=== PATIENT | female | born 1930 | race Caucasian/White ===

== ENCOUNTER 2016-09-13 06:00 | Inpatient (IN) | payer OTHER ==
[~2016-09-13] VITALS: Ht 147.3 cm; Wt 52.6 kg
[2016-09-13] VITALS (11 sets, daily range): BP systolic 95–123; BP diastolic 42–105
[2016-09-13 06:28] LABS: EOSINOPHIL (%) 0.8 % (0-5); EOSINOPHIL COUNT 0.1 K/uL (0-0.3); HEMATOCRIT 39.8 % (36.0-46.0); IMMATURE GRANULOCYTE (%) 0.2 % (0.0-0.7); IMMATURE GRANULOCYTE COUNT 0.1 K/uL; LYMPHOCYTE COUNT 1.9 K/uL (1.0-2.8); MCH 28.4 PG (29.0-34.0); MCHC 32.9 G/DL (30.0-36.0); MCV 86.1 FL (83-99); MEAN PLAT.VOLUME 9.8 uM^3 (9.5-12.4); MONOCYTE (%) 9.8 % (3-12); MONOCYTE COUNT 0.6 K/uL (0-0.8); NEUTROPHIL (%) 58.1 % (45-76); NEUTROPHIL COUNT 3.6 K/uL (1.8-6.4); PLATELET COUNT 203 K/uL (156-360); RBC DIS.WIDTH-CV 12.9 % (11.8-14.6); RBC DIS.WIDTH-SD 39.9 % (39-53); RED BLOOD COUNT 4.62 M/uL (3.80-5.20); WHITE BLOOD COUNT 6.1 K/uL (4.1-10.2)
[2016-09-13 06:37] LABS: INTER. NORMALIZED RATIO 1.1; PROTHROMBIN TIME 11.4 (9.2-11.2); PTT 27.5 (25-32)
[2016-09-13 06:38] LABS: CHLORIDE 109 mEq/L (99-109); POTASSIUM 4.2 mEq/L (3.7-5.4); SODIUM 141 mEq/L (136-147)
[2016-09-13 06:39] LABS: GLUCOSE 106 mg/dL (70-99)
[2016-09-13 06:41] LABS: ANION GAP 8 MEQ/L (2-14)
[2016-09-13 06:43] LABS: GFR ESTIMATE (CALCULATED) > 59 mL/min/
[2016-09-13 06:44] LABS: UREA NITROGEN (BUN) 21 mg/dL (9-23)
[2016-09-13 06:47] LABS: TROP-I INTERPRETATION NEGATIVE; TROPONIN-I 0.03 ng/mL (0.0-0.30)
[2016-09-13] MEDS ORDERED: XARELTO15 MG PO (07:14)
[2016-09-13] MEDS ORDERED: TOPROL XL25 MG PO (07:57)
[2016-09-13] MEDS ORDERED: B-121000 MC2 PO (08:37)
[2016-09-13] MEDS ORDERED: OCUVITE TABLET1 EACH PO (08:37)
[2016-09-13] MEDS ORDERED: FISH OIL 1,0001 EAC7 PO (08:37)
[2016-09-13 11:13] LABS: METH RESISTANT S AUREUS PCR NEGATIVE (NEGATIVE); PROBE CHECK PASS; SPECIMEN PROCESSING CONTROL PASS
[2016-09-14] VITALS (7 sets, daily range): BP systolic 125–139; BP diastolic 55–97
[2016-09-14 05:54] LABS: MCH 27.9 PG (29.0-34.0); MCHC 32.1 G/DL (30.0-36.0); MCV 86.8 FL (83-99); MEAN PLAT.VOLUME 10.4 uM^3 (9.5-12.4); NRBC (%) 1.1 /100 WBC (0-0); PLATELET COUNT 205 K/uL (156-360); RBC DIS.WIDTH-CV 13.5 % (11.8-14.6); RBC DIS.WIDTH-SD 42.9 % (39-53); RED BLOOD COUNT 4.38 M/uL (3.80-5.20)
[2016-09-14 06:35] LABS: ANION GAP 6 MEQ/L (2-14); CHLORIDE 110 MEQ/L (99-109); GFR ESTIMATE (CALCULATED) > 59 mL/min/; GLUCOSE 87 mg/dL (70-99); MAGNESIUM 1.8 mg/dl (1.3-2.7); POTASSIUM 4.2 MEQ/L (3.7-5.4); SAMPLE HEMOLYSIS CHECK 0; SAMPLE ICTERIC CHECK 0; SAMPLE LIPEMIA CHECK 0; SODIUM 143 MEQ/L (136-147); UREA NITROGEN (BUN) 11 mg/dL (9-23)
[2016-09-14 07:29] LABS: ABS NEUTROPHIL COUNT 4.35; MACROCYTES OCC; OVALOCYTES RARE; PLAT.SUFFICIENCY ADEQUATE
[2016-09-14 13:20] LABS: DELETE MACHINE DIFF? YES
[2016-09-15 00:12] VITALS: BP 133/81
[2016-09-15 04:01] VITALS: BP 116/69
[2016-09-15 06:46] LABS: EOSINOPHIL (%) 0.3 % (0-5); HEMATOCRIT 41.7 % (36.0-46.0); IMMATURE GRANULOCYTE (%) 0.2 % (0.0-0.7); LYMPHOCYTE COUNT 1.7 K/uL (1.0-2.8); MCH 27.8 PG (29.0-34.0); MCHC 32.4 G/DL (30.0-36.0); MEAN PLAT.VOLUME 10.3 uM^3 (9.5-12.4); MONOCYTE (%) 9.4 % (3-12); NEUTROPHIL (%) 73.5 % (45-76); NEUTROPHIL COUNT 7.8 K/uL (1.8-6.4); PLATELET COUNT 193 K/uL (156-360); RBC DIS.WIDTH-CV 13.1 % (11.8-14.6); RED BLOOD COUNT 4.85 M/uL (3.80-5.20)
[2016-09-15 06:47] LABS: WHITE BLOOD COUNT 10.6 K/uL (4.1-10.2)
[2016-09-15 08:21] LABS: ALKALINE PHOSPHATASE 65 IU/L (3-129); ANION GAP 11 MEQ/L (2-14); CHLORIDE 104 MEQ/L (99-109); GFR ESTIMATE (CALCULATED) > 59 mL/min/; GLUCOSE 73 mg/dL (70-99); MAGNESIUM 1.7 mg/dl (1.3-2.7); SAMPLE HEMOLYSIS CHECK 0; SAMPLE ICTERIC CHECK 0; SAMPLE LIPEMIA CHECK 0; SODIUM 138 MEQ/L (136-147); TOTAL BILIRUBIN 1.2 MG/DL (0.0-1.0); UREA NITROGEN (BUN) 11 mg/dL (9-23)
[2016-09-15 09:13] VITALS: BP 112/59
[2016-09-15 11:47] VITALS: BP 100/52
== END 2016-09-15 14:00 | disposition home or self-care (01) | DRG 244 ==
LOC: EME → EDBD 06:00 → EME 06:00 → 4WEST 08:28 → EDOF 08:28 → 4EAST 08:28 → EDOF 08:48 → 4WEST 09:46 → 4EAST 09-14 19:51
PROVIDERS: Emergency Medicine; Hospitalist; Internal Medicine Nephrology
DX: I49.5 Sick sinus syndrome (principal); I48.0 Paroxysmal atrial fibrillation; Z92.3 Personal history of irradiation; Z90.10 Acquired absence of unspecified breast and nipple; R93.8 Abnormal findings on diagnostic imaging of other specified body structures; I10 Essential (primary) hypertension
CPT/HCPCS: 71010; 71250; 80048; 80053; 81003; 83735; 84100; 84443; 84484; 85025; 85610; 85730; 87641; 93005; 99281; 99285; C1785; C1892; C1894; C1898; J0690; J1200; J2250; J3010; J7030; S0020

== ENCOUNTER 2016-09-16 08:22 | Observation (INO) | payer OTHER ==
[~2016-09-16] VITALS: Ht 147.3 cm; Wt 50.0 kg
[~2016-09-16 08:22] MED LIST: B-121000 MC2 PO; FISH OIL 1,0001 EAC7 PO; OCUVITE TABLET1 EACH PO; TOPROL XL25 MG PO; XARELTO15 MG PO
[2016-09-16 09:23] LABS: EOSINOPHIL (%) 0.6 % (0-5); EOSINOPHIL COUNT 0.1 K/uL (0-0.3); HEMATOCRIT 34.6 % (36.0-46.0); IMMATURE GRANULOCYTE (%) 0.2 % (0.0-0.7); IMMATURE GRANULOCYTE COUNT 0.2 K/uL; LYMPHOCYTE COUNT 1.6 K/uL (1.0-2.8); MCH 28.6 PG (29.0-34.0); MCHC 33.8 G/DL (30.0-36.0); MCV 84.6 FL (83-99); MONOCYTE (%) 8.9 % (3-12); MONOCYTE COUNT 0.8 K/uL (0-0.8); NEUTROPHIL (%) 72.4 % (45-76); NEUTROPHIL COUNT 6.5 K/uL (1.8-6.4); PLATELET COUNT 165 K/uL (156-360); RBC DIS.WIDTH-SD 39.4 % (39-53); RED BLOOD COUNT 4.09 M/uL (3.80-5.20)
[2016-09-16 09:32] LABS: CHLORIDE 109 mEq/L (99-109); POTASSIUM 3.9 mEq/L (3.7-5.4); SODIUM 142 mEq/L (136-147)
[2016-09-16 09:33] LABS: MAGNESIUM 1.7 mg/dL (1.3-2.7)
[2016-09-16 09:36] LABS: ANION GAP 8 MEQ/L (2-14)
[2016-09-16 09:38] LABS: GFR ESTIMATE (CALCULATED) > 59 mL/min/
[2016-09-16 09:39] LABS: UREA NITROGEN (BUN) 17 mg/dL (9-23)
[2016-09-16 09:40] LABS: INTER. NORMALIZED RATIO 1.2; PROTHROMBIN TIME 12.1 (9.2-11.2); PTT 27.8 (25-32)
[2016-09-16 09:46] LABS: GLUCOSE 102 mg/dL (70-99); TROP-I INTERPRETATION NEGATIVE; TROPONIN-I 0.02 ng/mL (0.0-0.30)
[2016-09-16 13:59] VITALS: BP 137/66
[2016-09-16 19:00] VITALS: BP 111/55
[2016-09-17] VITALS: BP 111/55
[2016-09-17 04:00] VITALS: BP 110/76
[2016-09-17 06:04] LABS: HEMATOCRIT 34.7 % (36.0-46.0); MCH 28.6 PG (29.0-34.0); MCHC 32.9 G/DL (30.0-36.0); MEAN PLAT.VOLUME 10.7 uM^3 (9.5-12.4); PLATELET COUNT 161 K/uL (156-360); RBC DIS.WIDTH-CV 13.2 % (11.8-14.6); RBC DIS.WIDTH-SD 42.1 % (39-53); RED BLOOD COUNT 3.99 M/uL (3.80-5.20); WHITE BLOOD COUNT 7.7 K/uL (4.1-10.2)
[2016-09-17 07:51] VITALS: BP 110/57
[2016-09-17] MEDS ORDERED: METOPROLOL SUCC50 MG PO (11:36)
[2016-09-17 11:45] VITALS: BP 118/58
== END 2016-09-17 13:03 | disposition home or self-care (01) ==
LOC: EME 08:22 → 5WEST 11:17 → EDOF 11:17 → 5WEST 13:43
PROVIDERS: Emergency Medicine; Internal Medicine
DX: I48.0 Paroxysmal atrial fibrillation (principal); Z95.0 Presence of cardiac pacemaker; R06.00 Dyspnea, unspecified; Z85.3 Personal history of malignant neoplasm of breast
CPT/HCPCS: 71010; 80048; 83735; 84484; 85025; 85027; 85610; 85730; 93005; 93306; 99281; 99283; G0378

== ENCOUNTER 2017-01-27 10:52 | Inpatient (IN) | payer OTHER ==
[~2017-01-27] VITALS: Ht 147.3 cm; Wt 60.3 kg
[~2017-01-27 10:52] MED LIST changes: +METOPROLOL SUCC50 MG PO
[2017-01-27 11:43] LABS: EOSINOPHIL (%) 0.4 % (0-5); HEMATOCRIT 37.9 % (36.0-46.0); IMMATURE GRANULOCYTE (%) 0.6 % (0.0-0.7); LYMPHOCYTE COUNT 1.5 K/uL (1.0-2.8); MCHC 32.5 G/DL (30.0-36.0); MCV 86.1 FL (83-99); MONOCYTE (%) 7.9 % (3-12); MONOCYTE COUNT 0.6 K/uL (0-0.8); NEUTROPHIL (%) 69.7 % (45-76); PLATELET COUNT 191 K/uL (156-360); RBC DIS.WIDTH-CV 12.4 % (11.8-14.6); RBC DIS.WIDTH-SD 39.5 % (39-53); WHITE BLOOD COUNT 7.1 K/uL (4.1-10.2)
[2017-01-27 11:57] LABS: CHLORIDE 107 mEq/L (99-109); POTASSIUM 4.5 mEq/L (3.7-5.4); SODIUM 141 mEq/L (136-147)
[2017-01-27 11:59] LABS: GLUCOSE 95 mg/dL (70-99)
[2017-01-27 12:00] LABS: ANION GAP 10 MEQ/L (2-14)
[2017-01-27 12:02] LABS: GFR ESTIMATE (CALCULATED) > 59 mL/min/
[2017-01-27 12:03] LABS: UREA NITROGEN (BUN) 22 mg/dL (9-23)
[2017-01-27 13:03] LABS: INTER. NORMALIZED RATIO 1.2; PROTHROMBIN TIME 11.8 (9.2-11.2)
[2017-01-27 16:18] VITALS: BP 138/64
[2017-01-27 19:49] VITALS: BP 94/52
[2017-01-28] VITALS (7 sets, daily range): BP systolic 107–137; BP diastolic 51–62
[2017-01-28 11:22] LABS: TROP-I INTERPRETATION NEGATIVE; TROPONIN-I 0.02 ng/mL (0.0-0.30)
[2017-01-28 18:13] LABS: TROP-I INTERPRETATION NEGATIVE; TROPONIN-I 0.01 ng/mL (0.0-0.30)
[2017-01-29] VITALS (8 sets, daily range): BP systolic 79–118; BP diastolic 50–78
[2017-01-29 01:37] LABS: TROP-I INTERPRETATION NEGATIVE; TROPONIN-I < 0.01 ng/mL (0.0-0.30)
[2017-01-29 06:46] LABS: HEMATOCRIT 32.9 % (36.0-46.0); MCV 86.8 FL (83-99)
[2017-01-29 07:20] LABS: ANION GAP 7 MEQ/L (2-14); CHLORIDE 107 MEQ/L (99-109); GFR ESTIMATE (CALCULATED) > 59 mL/min/; GLUCOSE 106 mg/dL (70-99); POTASSIUM 3.9 MEQ/L (3.7-5.4); SAMPLE HEMOLYSIS CHECK 0; SAMPLE ICTERIC CHECK 0; SAMPLE LIPEMIA CHECK 0; SODIUM 138 MEQ/L (136-147); UREA NITROGEN (BUN) 9 mg/dL (9-23)
[2017-01-30] VITALS (11 sets, daily range): BP systolic 88–137; BP diastolic 51–72
[2017-01-30 07:09] LABS: ANION GAP 6 MEQ/L (2-14); CHLORIDE 106 MEQ/L (99-109); GFR ESTIMATE (CALCULATED) > 59 mL/min/; GLUCOSE 106 mg/dL (70-99); POTASSIUM 3.8 MEQ/L (3.7-5.4); SAMPLE HEMOLYSIS CHECK 0; SAMPLE ICTERIC CHECK 0; SAMPLE LIPEMIA CHECK 0; SODIUM 135 MEQ/L (136-147); UREA NITROGEN (BUN) 12 mg/dL (9-23)
[2017-01-30 07:16] LABS: EOSINOPHIL (%) 0.9 % (0-5); EOSINOPHIL COUNT 0.1 K/uL (0-0.3); IMMATURE GRANULOCYTE (%) 0.7 % (0.0-0.7); IMMATURE GRANULOCYTE COUNT 0.1 K/uL; INSTRUMENT ABS NEUTROPHIL CT 7.6 K/uL; LYMPHOCYTE COUNT 1.3 K/uL (1.0-2.8); MCH 29.9 PG (29.0-34.0); MCHC 34.3 G/DL (30.0-36.0); MCV 87.2 FL (83-99); MONOCYTE (%) 7.4 % (3-12); MONOCYTE COUNT 0.7 K/uL (0-0.8); NEUTROPHIL (%) 77.8 % (45-76); NEUTROPHIL COUNT 7.6 K/uL (1.8-6.4); RBC DIS.WIDTH-CV 12.9 % (11.8-14.6); RBC DIS.WIDTH-SD 40.8 % (39-53); WHITE BLOOD COUNT 9.7 K/uL (4.1-10.2)
[2017-01-30 07:17] LABS: RED BLOOD COUNT 3.21 M/uL (3.80-5.20)
[2017-01-30 07:58] LABS: MEAN PLAT.VOLUME 11.5 uM^3 (9.5-12.4)
[2017-01-30 08:22] LABS: PLATELET COUNT 277 K/uL (156-360)
[2017-01-31 06:36] VITALS: BP 93/57
[2017-01-31 06:54] LABS: ANION GAP 10 MEQ/L (2-14); CHLORIDE 109 MEQ/L (99-109); GFR ESTIMATE (CALCULATED) > 59 mL/min/; GLUCOSE 108 mg/dL (70-99); POTASSIUM 3.7 MEQ/L (3.7-5.4); SAMPLE HEMOLYSIS CHECK 0; SAMPLE ICTERIC CHECK 0; SAMPLE LIPEMIA CHECK 0; SODIUM 141 MEQ/L (136-147); UREA NITROGEN (BUN) 9 mg/dL (9-23)
[2017-01-31 07:29] LABS: EOSINOPHIL (%) 1.1 % (0-5); EOSINOPHIL COUNT 0.1 K/uL (0-0.3); HEMATOCRIT 27.2 % (36.0-46.0); IMMATURE GRANULOCYTE (%) 0.5 % (0.0-0.7); INSTRUMENT ABS NEUTROPHIL CT 6.9 K/uL; LYMPHOCYTE COUNT 1.2 K/uL (1.0-2.8); MCH 29.4 PG (29.0-34.0); MCHC 33.5 G/DL (30.0-36.0); MCV 87.7 FL (83-99); MONOCYTE (%) 7.3 % (3-12); MONOCYTE COUNT 0.7 K/uL (0-0.8); NEUTROPHIL (%) 77.9 % (45-76); NEUTROPHIL COUNT 6.9 K/uL (1.8-6.4); RBC DIS.WIDTH-CV 12.8 % (11.8-14.6); RBC DIS.WIDTH-SD 40.9 % (39-53); WHITE BLOOD COUNT 8.9 K/uL (4.1-10.2)
[2017-01-31 07:38] LABS: PLAT.SUFFICIENCY DECREASED
[2017-01-31 07:52] LABS: PLATELET COUNT 141 K/uL (156-360)
[2017-01-31 11:19] VITALS: BP 94/51
[2017-01-31 15:49] VITALS: BP 142/60
[2017-01-31 19:37] VITALS: BP 88/40
[2017-01-31 22:19] VITALS: BP 94/52
[2017-02-01] VITALS (9 sets, daily range): BP systolic 88–124; BP diastolic 46–68
[2017-02-01 02:35] LABS: BASE EXCESS -3.8 mEq/L (-3 to +3); BICARBONATE 20.6 mEq/L (22-26); CARBOXY HGB 1.7 % (0-5); METHEMOGLOBIN 1.4 % (0-1.5); PCO2 34 mm Hg (35-45); PO2 94 mm Hg (80-100); pH 7.39 (7.35-7.45)
[2017-02-01 02:36] LABS: COMMENTS - BLOOD GASES C+A+; DEVICE NRBM; FI02 100 %; O2 FLOW 15 L/MIN; SITE LR; TOTAL RESP RATE 24 resp/min
[2017-02-01 03:20] LABS: HEMATOCRIT 28.4 % (36.0-46.0); MCH 28.6 PG (29.0-34.0); MCHC 32.7 G/DL (30.0-36.0); MCV 87.4 FL (83-99); MEAN PLAT.VOLUME 10.6 uM^3 (9.5-12.4); PLATELET COUNT 189 K/uL (156-360); RBC DIS.WIDTH-CV 12.7 % (11.8-14.6); RBC DIS.WIDTH-SD 41.2 % (39-53); RED BLOOD COUNT 3.25 M/uL (3.80-5.20)
[2017-02-01 03:24] LABS: CHLORIDE 108 mEq/L (99-109); POTASSIUM 3.9 mEq/L (3.7-5.4)
[2017-02-01 03:25] LABS: SODIUM 137 mEq/L (136-147)
[2017-02-01 03:27] LABS: GLUCOSE 134 mg/dL (70-99)
[2017-02-01 03:28] LABS: ANION GAP 7 MEQ/L (2-14)
[2017-02-01 03:29] LABS: TOTAL BILIRUBIN 0.7 mg/dL (0.0-1.0)
[2017-02-01 03:30] LABS: ALKALINE PHOSPHATASE 99 IU/L (3-129); GFR ESTIMATE (CALCULATED) > 59 mL/min/
[2017-02-01 03:32] LABS: UREA NITROGEN (BUN) 10 mg/dL (9-23)
[2017-02-01 03:33] LABS: TROP-I INTERPRETATION NEGATIVE; TROPONIN-I 0.03 ng/mL (0.0-0.30)
[2017-02-01 06:08] LABS: ANION GAP 9 MEQ/L (2-14); CHLORIDE 106 MEQ/L (99-109); GFR ESTIMATE (CALCULATED) > 59 mL/min/; GLUCOSE 119 mg/dL (70-99); POTASSIUM 4.6 MEQ/L (3.7-5.4); SAMPLE HEMOLYSIS CHECK 1; SAMPLE ICTERIC CHECK 0; SAMPLE LIPEMIA CHECK 0; SODIUM 135 MEQ/L (136-147); UREA NITROGEN (BUN) 11 mg/dL (9-23)
[2017-02-02 04:45] VITALS: BP 112/51
[2017-02-02 06:57] LABS: DIGOXIN 1.3 ng/mL (0.8-2.0)
[2017-02-02 07:01] LABS: ANION GAP 13 MEQ/L (2-14); CHLORIDE 103 MEQ/L (99-109); GFR ESTIMATE (CALCULATED) > 59 mL/min/; GLUCOSE 96 mg/dL (70-99); SAMPLE HEMOLYSIS CHECK 0; SAMPLE ICTERIC CHECK 0; SAMPLE LIPEMIA CHECK 0; SODIUM 140 MEQ/L (136-147); UREA NITROGEN (BUN) 12 mg/dL (9-23)
[2017-02-02 07:08] LABS: POTASSIUM 3.6 MEQ/L (3.7-5.4)
[2017-02-02 07:35] VITALS: BP 109/57
[2017-02-02 10:34] LABS: EOSINOPHIL (%) 0.1 % (0-5); HEMATOCRIT 30.3 % (36.0-46.0); IMMATURE GRANULOCYTE (%) 0.6 % (0.0-0.7); IMMATURE GRANULOCYTE COUNT 0.1 K/uL; INSTRUMENT ABS NEUTROPHIL CT 11.9 K/uL; LYMPHOCYTE COUNT 0.9 K/uL (1.0-2.8); MCH 28.5 PG (29.0-34.0); MCHC 33.3 G/DL (30.0-36.0); MCV 85.6 FL (83-99); MEAN PLAT.VOLUME 10.3 uM^3 (9.5-12.4); MONOCYTE (%) 7.7 % (3-12); MONOCYTE COUNT 1.1 K/uL (0-0.8); NEUTROPHIL (%) 85.1 % (45-76); NEUTROPHIL COUNT 11.9 K/uL (1.8-6.4); PLATELET COUNT 290 K/uL (156-360); RBC DIS.WIDTH-CV 12.7 % (11.8-14.6); RED BLOOD COUNT 3.54 M/uL (3.80-5.20)
[2017-02-02 12:31] VITALS: BP 111/52
[2017-02-02 17:12] VITALS: BP 109/56
[2017-02-02 18:47] LABS: ADD MIUA? YES; BILIRUBIN NEGATIVE; BLOOD SMALL; COLOR YELLOW ((YELLOW)); GLUCOSE (STRIP) NEGATIVE; KETONES 5; LEUKOCYTES NEGATIVE; NITRITE NEGATIVE; PROTEIN (STRIP) NEGATIVE; UROBILINOGEN 0.2 MG/DL (0.2-1.0)
[2017-02-02 19:07] LABS: BACTERIA NONE SEEN /HPF; EPITHELIAL CELLS RARE /HPF; MUCUS TRACE /LPF; RED BLOOD CELLS 0-5 /HPF (0-5); WHITE BLOOD CELLS 0-5 /HPF (0-5)
[2017-02-02 19:46] VITALS: BP 109/53
[2017-02-02 23:55] VITALS: BP 129/98
[2017-02-03] VITALS (7 sets, daily range): BP systolic 84–172; BP diastolic 48–85
[2017-02-03 06:46] LABS: HEMATOCRIT 26.9 % (36.0-46.0); MCH 28.8 PG (29.0-34.0); MCHC 33.8 G/DL (30.0-36.0); MCV 85.1 FL (83-99); MEAN PLAT.VOLUME 9.9 uM^3 (9.5-12.4); PLATELET COUNT 300 K/uL (156-360); RBC DIS.WIDTH-SD 40.2 % (39-53); RED BLOOD COUNT 3.16 M/uL (3.80-5.20); WHITE BLOOD COUNT 10.2 K/uL (4.1-10.2)
[2017-02-03 07:16] LABS: ANION GAP 9 MEQ/L (2-14); CHLORIDE 100 MEQ/L (99-109); GFR ESTIMATE (CALCULATED) > 59 mL/min/; GLUCOSE 105 mg/dL (70-99); POTASSIUM 3.4 MEQ/L (3.7-5.4); SAMPLE HEMOLYSIS CHECK 0; SAMPLE ICTERIC CHECK 0; SAMPLE LIPEMIA CHECK 0; SODIUM 137 MEQ/L (136-147); UREA NITROGEN (BUN) 17 mg/dL (9-23)
[2017-02-03 08:24] LABS: MAGNESIUM 1.7 mg/dl (1.3-2.7)
[2017-02-04 04:05] VITALS: BP 130/66
[2017-02-04 06:03] LABS: HEMATOCRIT 25.6 % (36.0-46.0); MCH 28.8 PG (29.0-34.0); MCHC 33.6 G/DL (30.0-36.0); MCV 85.6 FL (83-99); MEAN PLAT.VOLUME 10.3 uM^3 (9.5-12.4); PLATELET COUNT 348 K/uL (156-360); RBC DIS.WIDTH-CV 13.1 % (11.8-14.6); RBC DIS.WIDTH-SD 40.7 % (39-53); RED BLOOD COUNT 2.99 M/uL (3.80-5.20); WHITE BLOOD COUNT 7.1 K/uL (4.1-10.2)
[2017-02-04 06:30] LABS: ANION GAP 5 MEQ/L (2-14); CHLORIDE 99 MEQ/L (99-109); GFR ESTIMATE (CALCULATED) > 59 mL/min/; GLUCOSE 175 mg/dL (70-99); POTASSIUM 4.6 MEQ/L (3.7-5.4); SAMPLE HEMOLYSIS CHECK 0; SAMPLE ICTERIC CHECK 0; SAMPLE LIPEMIA CHECK 0; SODIUM 135 MEQ/L (136-147); UREA NITROGEN (BUN) 23 mg/dL (9-23)
[2017-02-04 08:43] LABS: POINT-OF-CARE METER ID UU13113781; POINT-OF-CARE USER ID NUTSLF44
[2017-02-04 09:02] VITALS: BP 115/89
[2017-02-04 11:24] VITALS: BP 116/59
[2017-02-04 16:17] VITALS: BP 113/61
[2017-02-04 19:50] VITALS: BP 119/85
[2017-02-04 23:35] VITALS: BP 114/57
[2017-02-05] VITALS (7 sets, daily range): BP systolic 88–120; BP diastolic 53–71
[2017-02-05 09:07] LABS: HEMATOCRIT 27.3 % (36.0-46.0); MCHC 32.6 G/DL (30.0-36.0); MCV 85.8 FL (83-99); MEAN PLAT.VOLUME 9.7 uM^3 (9.5-12.4); RBC DIS.WIDTH-CV 13.2 % (11.8-14.6); RBC DIS.WIDTH-SD 41.6 % (39-53); RED BLOOD COUNT 3.18 M/uL (3.80-5.20); WHITE BLOOD COUNT 12.5 K/uL (4.1-10.2)
[2017-02-05 09:09] LABS: PLATELET COUNT 500 K/uL (156-360)
[2017-02-05 09:23] LABS: ANION GAP 10 MEQ/L (2-14); CHLORIDE 102 MEQ/L (99-109); GFR ESTIMATE (CALCULATED) > 59 mL/min/; POTASSIUM 4.4 MEQ/L (3.7-5.4); SAMPLE HEMOLYSIS CHECK 0; SAMPLE ICTERIC CHECK 0; SAMPLE LIPEMIA CHECK 0; SODIUM 141 MEQ/L (136-147); UREA NITROGEN (BUN) 28 mg/dL (9-23)
[2017-02-05 09:25] LABS: GLUCOSE 96 mg/dL (70-99)
[2017-02-06 03:16] VITALS: BP 116/54
[2017-02-06 05:36] LABS: ANION GAP 8 MEQ/L (2-14); CHLORIDE 102 MEQ/L (99-109); GFR ESTIMATE (CALCULATED) > 59 mL/min/; GLUCOSE 77 mg/dL (70-99); SAMPLE HEMOLYSIS CHECK 0; SAMPLE ICTERIC CHECK 0; SAMPLE LIPEMIA CHECK 0; SODIUM 140 MEQ/L (136-147); UREA NITROGEN (BUN) 29 mg/dL (9-23)
[2017-02-06 07:12] LABS: DIGOXIN 0.8 ng/mL (0.8-2.0)
[2017-02-06 08:40] VITALS: BP 109/53
[2017-02-06 10:25] VITALS: BP 99/55
[2017-02-06 16:50] VITALS: BP 99/57
[2017-02-06 20:11] VITALS: BP 109/56
[2017-02-06 23:52] VITALS: BP 104/55
[2017-02-07 04:07] VITALS: BP 133/57
[2017-02-07 06:35] LABS: HEMATOCRIT 25.5 % (36.0-46.0); MCH 28.8 PG (29.0-34.0); MCHC 33.3 G/DL (30.0-36.0); MCV 86.4 FL (83-99); MEAN PLAT.VOLUME 9.6 uM^3 (9.5-12.4); PLATELET COUNT 477 K/uL (156-360); RBC DIS.WIDTH-CV 13.4 % (11.8-14.6); RBC DIS.WIDTH-SD 42.1 % (39-53); RED BLOOD COUNT 2.95 M/uL (3.80-5.20); WHITE BLOOD COUNT 9.2 K/uL (4.1-10.2)
[2017-02-07 08:04] VITALS: BP 140/60
[2017-02-07] MEDS ORDERED: AMOXICILLIN500 MG PO (12:22)
[2017-02-07] MEDS ORDERED: DIGOXIN125 MCG PO (12:22)
[2017-02-07] MEDS ORDERED: METOPROLOL SUCC25 MG PO (12:23)
[2017-02-07] MEDS ORDERED: IBUPROFEN800 MG PO (12:23)
[2017-02-07] MEDS ORDERED: LISINOPRIL2.5 MG PO (12:25)
== END 2017-02-07 14:23 | DRG 469 ==
LOC: EME 10:52 → EDOF 14:05 → 3EAST 14:05 → EDOF 14:09 → 3EAST 15:13 → 4EAST 01-30 17:14 → ENRESERV 02-06 08:19 → 4EAST 02-06 08:40 → 3EAST 02-06 09:43
PROVIDERS: Emergency Medicine; Hospitalist; Internal Medicine; Orthopaedic Surgery Sports Medicine; Physician Assistant; Physician Assistant Medical; Student in an Organized Health Care Education/Training Program
PROC: 0SRS0JA Replacement of Left Hip Joint, Femoral Surface with Synthetic Substitute, Uncemented, Open Approach (ICD-10-PCS; principal; 2017-01-28)
DX: S72.032A Displaced midcervical fracture of left femur, initial encounter for closed fracture (principal); A41.81 Sepsis due to Enterococcus; J96.01 Acute respiratory failure with hypoxia; I50.33 Acute on chronic diastolic (congestive) heart failure; J18.9 Pneumonia, unspecified organism; L89.322 Pressure ulcer of left buttock, stage 2; I11.0 Hypertensive heart disease with heart failure; I27.2 Other secondary pulmonary hypertension; E87.6 Hypokalemia; F41.9 Anxiety disorder, unspecified; I48.0 Paroxysmal atrial fibrillation; I49.5 Sick sinus syndrome; T81.4XXA Infection following a procedure, initial encounter; L03.116 Cellulitis of left lower limb; T50.1X5A Adverse effect of loop [high-ceiling] diuretics, initial encounter; V19.9XXA Pedal cyclist (driver) (passenger) injured in unspecified traffic accident, initial encounter; Y93.55 Activity, bike riding; Z79.01 Long term (current) use of anticoagulants; Z80.0 Family history of malignant neoplasm of digestive organs; Z82.3 Family history of stroke; Z85.3 Personal history of malignant neoplasm of breast; Z90.12 Acquired absence of left breast and nipple; Z95.0 Presence of cardiac pacemaker; I95.9 Hypotension, unspecified; Z92.21 Personal history of antineoplastic chemotherapy; Z92.3 Personal history of irradiation; Z87.891 Personal history of nicotine dependence
CPT/HCPCS: 36600; 71010; 71020; 71275; 72170; 73502; 80048; 80053; 80162; 81003; 82040; 82272; 82803; 82948; 83605; 83735; 83880; 84145 90; 84484; 85014; 85018; 85025; 85027; 85610; 86900; 86901; 87040; 87070; 87075; 87077; 87086; 87186; 87205; 87449; 87801; 92610 GN; 93005; 93971; 94640; 94640 76; 94668; 94760; 94799; 97530 GO; 99202; 99281; 99285; J0290; J0456; J0690; J0696; J1100; J1160; J1170; J1940; J2175; J2270; J2405; J2543; J2920; J2930; J3010; J3370; J7030; J7040; J7050

== ENCOUNTER 2017-03-19 06:45 | Emergency (ER) | payer OTHER ==
[~2017-03-19] VITALS: Ht 147.3 cm; Wt 49.6 kg
[~2017-03-19 06:45] MED LIST changes: +AMOXICILLIN500 MG PO; +DIGOXIN125 MCG PO; +IBUPROFEN800 MG PO; +LISINOPRIL2.5 MG PO; +METOPROLOL SUCC25 MG PO
[2017-03-19 08:11] VITALS: BP 149/61
== END 2017-03-19 08:12 | disposition home or self-care (01) ==
LOC: EME 06:45
DX: T83.89XA Other specified complication of genitourinary prosthetic devices, implants and grafts, initial encounter (principal); Z96.649 Presence of unspecified artificial hip joint; Z90.710 Acquired absence of both cervix and uterus; Z85.3 Personal history of malignant neoplasm of breast; Z79.01 Long term (current) use of anticoagulants
CPT/HCPCS: 99281; 99284